=== PATIENT | female | born 1985 | race Caucasian/White ===

== ENCOUNTER 2016-10-18 05:39 | Inpatient (IN) | payer MEDICAID ==
[~2016-10-18] VITALS: Ht 165.1 cm; Wt 70.0 kg
[2016-10-18] VITALS (8 sets, daily range): BP systolic 109–140; BP diastolic 63–92; PULSE 65–104; RESP 15–23; TEMP 98.2–99; O2SAT 95–98
[2016-10-18] MEDS ORDERED: ACTIVATED CHARCOAL LIQUID 25 GM/120 ML BTL PO/NG ONE (05:45)
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
[2016-10-18 06:34] LABS: AUTOMATED NEUTROPHIL # 6.4 TH/MM3 (1.8-7.7); BASOPHIL % 0.5 % (0.0-2.0); EOSINOPHIL % 0.2 % (0.0-4.0); HEMATOCRIT 40.9 % (35.0-46.0); HEMO FLAGS DIFF FINAL; LYMPH % 27.2 % (9.0-44.0); LYMPHOCYTE # 2.6 TH/MM3 (1.0-4.8); MEAN CELL VOLUME 84.9 FL (80.0-100.0); MEAN CORPUSCULAR HEMOGLOBIN 28.9 PG (27.0-34.0); MONO % 5.7 % (0.0-8.0); NEUT % 66.4 % (16.0-70.0); PLATELET COUNT 250 TH/MM3 (150-450); RED BLOOD COUNT 4.82 MIL/MM3 (4.00-5.30); RED CELL DISTRIBUTION WIDTH 14.8 % (11.6-17.2); WHITE BLOOD COUNT 9.6 TH/MM3 (4.0-11.0)
[2016-10-18 06:55] LABS: ALT (GPT) 37 U/L (10-53); ANION GAP 9 MEQ/L (5-15); AST (GOT) 36 U/L (15-37); BICARBONATE 23.9 MEQ/L (21.0-32.0); BLOOD UREA NITROGEN 10 MG/DL (7-18); CHLORIDE 107 MEQ/L (98-107); GLOMERULAR FILTRATION RATE 114 ML/MIN (>89); POTASSIUM 4.1 MEQ/L (3.5-5.1); SODIUM (NA) 140 MEQ/L (136-145)
[2016-10-18 07:02] LABS: ALCOHOL 121 MG/DL (0-5)
[2016-10-18 07:04] LABS: ALKALINE PHOSPHATASE 65 U/L (45-117); TOTAL BILIRUBIN ADULT 0.2 MG/DL (0.2-1.0)
[2016-10-18 07:10] LABS: ACETAMINOPHEN 168.7 MCG/ML (10.0-30.0)
--- NOTE | 2016-10-18 07:28 | PD ---
Physical Exam Date Seen by Provider: Oct 18, 2016 Time Seen by Provider: 07:00 Narrative The patient was signed out to me by Dr. Spencer at change of shift. The patient is under a Loving act and reportedly took a half bottle of Tylenol. We were awaiting the Tylenol level. Please note the Tylenol level comes back at 167. Acetadote was ordered. Data Data Last Documented VS Vital Signs Date Time Temp Pulse Resp B/P Pulse Ox O2 Delivery O2 Flow Rate FiO2 10/18/16 06:30 18 10/18/16 05:42 98.7 94 119/72 97 Orders Complete Blood Count With Diff (10/18/16 05:45) Comprehensive Metabolic Panel (10/18/16 05:45) Thyroid Stimulating Hormone (10/18/16 05:45) Urinalysis - C+S If Indicated (10/18/16 05:45) Ed Urine Pregnancytest Poc (10/18/16 05:45) Electrocardiogram (10/18/16 05:45) Psych Screen (10/18/16 05:45) Drug Screen, Random Urine (10/18/16 05:45) Alcohol (Ethanol) (10/18/16 05:45) Salicylates (Aspirin) (10/18/16 05:45) Tylenol (Acetaminophen) (10/18/16 05:45) Charcoal Activated Liq (Actidose-Aqua Li (10/18/16 05:45) Call Poison Control (10/18/16 05:45) Acetylcysteine Inj (Acetadote Inj) (10/18/16 07:30) Admit Order (Ed Use Only) (10/18/16 07:46) Labs Laboratory Tests Test 10/18/16 06:00 White Blood Count 9.6 TH/MM3 Red Blood Count 4.82 MIL/MM3 Hemoglobin 13.9 GM/DL Hematocrit 40.9 % Mean Corpuscular Volume 84.9 FL Mean Corpuscular Hemoglobin 28.9 PG Mean Corpuscular Hemoglobin 34.0 % Concent Red Cell Distribution Width 14.8 % Platelet Count 250 TH/MM3 Mean Platelet Volume 10.0 FL Neutrophils (%) (Auto) 66.4 % Lymphocytes (%) (Auto) 27.2 % Monocytes (%) (Auto) 5.7 % Eosinophils (%) (Auto) 0.2 % Basophils (%) (Auto) 0.5 % Neutrophils # (Auto) 6.4 TH/MM3 Lymphocytes # (Auto) 2.6 TH/MM3 Monocytes # (Auto) 0.5 TH/MM3 Eosinophils # (Auto) 0.0 TH/MM3 Basophils # (Auto) 0.0 TH/MM3 CBC Comment DIFF FINAL Differential Comment Sodium Level 140 MEQ/L Potassium Level 4.1 MEQ/L Chloride Level 107 MEQ/L Carbon Dioxide Level 23.9 MEQ/L Anion Gap 9 MEQ/L Blood Urea Nitrogen 10 MG/DL Creatinine 0.62 MG/DL Estimat Glomerular Filtration 114 ML/MIN Rate Random Glucose 111 MG/DL Calcium Level 8.5 MG/DL Total Bilirubin 0.2 MG/DL Aspartate Amino Transf 36 U/L (AST/SGOT) Alanine Aminotransferase 37 U/L (ALT/SGPT) Alkaline Phosphatase 65 U/L Total Protein 7.4 GM/DL Albumin 3.6 GM/DL Thyroid Stimulating Hormone 0.792 uIU/ML 3rd Gen Salicylates Level LESS THAN 1.7 MG/DL Acetaminophen Level 168.7 MCG/ML Ethyl Alcohol Level 121 MG/DL MDM Medical Record Reviewed: Yes Supervised Visit with FACUNDO: No Critical Care Narrative 30-year-old female brought in under a Loving act after ingesting Tylenol. The patient has Tylenol level of 169. Acetadote was implemented. The patient was initially slotted for a medicine admission however she has been changed to intensive care. The patient was initially discussed with Dr. Amaro but is now gone to the unit. The case was discussed with Dr. Young who agreed for the admission. Diagnosis Primary Impression: Tylenol overdose Additional Impressions: Alcohol intoxication Loving act Admitting Information Admitting Physician Requests: Admit Anthony Rios MD Oct 18, 2016 07:28
[2016-10-18] MEDS ORDERED: ACETYLCYSTEINE INJ 10,500 MG in DEXTROSE 5% IN WATER INJ 200 ML IV ONE ×2 (07:30)
[2016-10-18] MEDS ORDERED: ONDANSETRON HCL 4 MG/2 ML VIAL IVP PRN ×2 (08:30→08:45)
[2016-10-18] MEDS ORDERED: ACETYLCYSTEINE INJ 3,500 MG in DEXTROSE 5% IN WATE 500 ML INJ 500 ML IV ONE ×6 (08:30→09:00)
[2016-10-18] MEDS ORDERED: ACETYLCYSTEINE INJ 7,000 MG in DEXTROSE 5% IN WATE 1000ML INJ 1,000 ML IV ONE ×6 (08:30→13:45)
[2016-10-18] MEDS ORDERED: MAGNESIUM HYDROXIDE SUSP 30 ML CUP PO PRN ×3 (08:30→08:45)
[2016-10-18] MEDS ORDERED: SODIUM CHLOR 0.9% 1000 ML INJ 1,000 ML IV SCH (08:31)
[2016-10-18] MEDS ORDERED: LORazepam 1 MG TAB PO PRN (08:45)
[2016-10-18] MEDS ORDERED: MISCELLANEOUS NURSING INFORMATION XX SCH (08:45)
[2016-10-18] MEDS ORDERED: LORazepam 2 MG/ML VIAL IV PUSH PRN ×4 (08:45)
[2016-10-18] MEDS ORDERED: SENNOSIDES 8.6 MG TAB PO PRN ×2 (08:45)
[2016-10-18] MEDS ORDERED: PROCHLORPERAZINE 25 MG SUPP RECTAL PRN (08:45)
[2016-10-18] MEDS ORDERED: NALOXONE HCL 0.4 MG/ML AMP IV PRN (08:45)
[2016-10-18] MEDS ORDERED: CHLORHEXIDINE GLUCONATE 2 % 1 PACK (2 CLOTHS) TOP PRN (08:45)
[2016-10-18] MEDS ORDERED: FLUMAZENIL 0.5 MG/5 ML VIAL IV PUSH PRN (08:45)
[2016-10-18] MEDS ORDERED: RESP: ALBUTEROL 2.5 MG/IPRATROPIUM 0.5 MG NEB (PRN) INH (08:45)
[2016-10-18] MEDS ORDERED: LORazepam 2 MG TAB PO PRN (08:45)
[2016-10-18] MEDS ORDERED: BISACODYL 10 MG SUPP RECTAL PRN ×2 (08:45)
[2016-10-18] MEDS ORDERED: SODIUM CHLORIDE 0.9% FLUSH 10 ML FLUSH IV FLUSH PRN (08:45)
[2016-10-18] MEDS ORDERED: LACTULOSE SYRUP 20 GM/30 ML CUP PO PRN ×2 (08:45)
[2016-10-18] MEDS ORDERED: MORPHINE SULFATE 4 MG/ML INJ IV PRN ×3 (08:45)
[2016-10-18] MEDS ORDERED: DOCUSATE SODIUM 50 MG/SENNA 8.6 MG TAB PO SCH (09:00)
[2016-10-18 09:22] LABS: ALT (GPT) 37 U/L (10-53); AST (GOT) 36 U/L (15-37)
[2016-10-18 09:24] LABS: ALKALINE PHOSPHATASE 65 U/L (45-117); TOTAL BILIRUBIN ADULT LESS THAN 0.1 MG/DL (0.2-1.0)
[2016-10-18] MEDS ORDERED: MULTIVITAMIN TAB PO ONE (10:00)
[2016-10-18] MEDS ORDERED: FOLIC ACID 1 MG TAB PO ONE (10:00)
[2016-10-18] MEDS ORDERED: THIAMINE HCL 100 MG TAB PO ONE (10:00)
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
[2016-10-18] MEDS: SODIUM CHLORIDE 0.9% FLUSH 10 ML FLUSH IV FLUSH SCH ×2 (11:14→21:00)
[2016-10-18] MEDS: MULTIVITAMIN INJ 10 ML, THIAMINE INJ 100 MG, FOLIC ACID INJ 1 MG in DEXT 5%-NACL 0.9% 5... IV SCH ×2 (12:15→13:20)
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
[2016-10-18] MEDS: DOCUSATE SODIUM 50 MG/SENNA 8.6 MG TAB PO SCH ×2 (13:19→21:00)
[2016-10-18] MEDS: ENOXAPARIN SODIUM 40 MG/0.4 ML SYRINGE SQ SCH (13:21)
[2016-10-18] MEDS: PANTOPRAZOLE SODIUM 40 MG VIAL IV SCH (13:21)
[2016-10-18] MEDS: SODIUM CHLOR 0.9% 1000 ML INJ 1,000 ML IV SCH ×3 (14:06→23:20)
--- NOTE | 2016-10-18 14:59 | EKG ---
Date Performed: 10/18/2016 Time Performed: 05:55:40 PTAGE: 30 years EKG: Sinus rhythm POSSIBLE LEFT ATRIAL ENLARGEMENT BORDERLINE ECG NO PREVIOUS TRACING DOCTOR: Gato Mantilla Interpretating Date/Time 10/18/2016 14:57:45
[2016-10-18 22:26] LABS: PROTHROMBIN TIME - PATIENT 11.5 SEC (9.8-11.6)
[2016-10-18 23:20] LABS: ACETAMINOPHEN LESS THAN 2.0 MCG/ML (10.0-30.0); ALKALINE PHOSPHATASE 51 U/L (45-117); ALT (GPT) 33 U/L (10-53); ANION GAP 6 MEQ/L (5-15); AST (GOT) 21 U/L (15-37); BICARBONATE 25.4 MEQ/L (21.0-32.0); BLOOD UREA NITROGEN 6 MG/DL (7-18); CHLORIDE 107 MEQ/L (98-107); GLOMERULAR FILTRATION RATE 133 ML/MIN (>89); POTASSIUM 3.1 MEQ/L (3.5-5.1); SODIUM (NA) 138 MEQ/L (136-145); TOTAL BILIRUBIN ADULT 0.3 MG/DL (0.2-1.0)
[2016-10-19] VITALS (10 sets, daily range): BP systolic 123–151; BP diastolic 67–92; PULSE 60–85; RESP 16–22; TEMP 98.6–99.5; O2SAT 94–99
[2016-10-19] MEDS ORDERED: CHLORHEXIDINE GLUCONATE 2 % 1 PACK (2 CLOTHS) TOP SCH (04:00)
[2016-10-19 04:17] LABS: AUTOMATED NEUTROPHIL # 5.9 TH/MM3 (1.8-7.7); BASOPHIL % 0.4 % (0.0-2.0); EOSINOPHIL # 0.1 TH/MM3 (0-0.4); EOSINOPHIL % 0.9 % (0.0-4.0); HEMATOCRIT 37.4 % (35.0-46.0); HEMO FLAGS DIFF FINAL; LYMPH % 30.7 % (9.0-44.0); MEAN CELL VOLUME 85.2 FL (80.0-100.0); MEAN CORPUSCULAR HEMOGLOBIN 28.7 PG (27.0-34.0); MEAN CORPUSCULAR HGB CONC 33.7 % (32.0-36.0); MONO % 7.5 % (0.0-8.0); NEUT % 60.5 % (16.0-70.0); PLATELET COUNT 204 TH/MM3 (150-450); RED BLOOD COUNT 4.38 MIL/MM3 (4.00-5.30); RED CELL DISTRIBUTION WIDTH 14.4 % (11.6-17.2); WHITE BLOOD COUNT 9.8 TH/MM3 (4.0-11.0)
[2016-10-19 04:25] LABS: PROTHROMBIN TIME - PATIENT 11.5 SEC (9.8-11.6)
[2016-10-19 04:40] LABS: ANION GAP 9 MEQ/L (5-15); AST (GOT) 15 U/L (15-37); BLOOD UREA NITROGEN 6 MG/DL (7-18); CHLORIDE 106 MEQ/L (98-107); GLOMERULAR FILTRATION RATE 133 ML/MIN (>89); POTASSIUM 3.2 MEQ/L (3.5-5.1); SODIUM (NA) 139 MEQ/L (136-145)
[2016-10-19 04:49] LABS: ACETAMINOPHEN LESS THAN 2.0 MCG/ML (10.0-30.0); ALKALINE PHOSPHATASE 52 U/L (45-117); ALT (GPT) 32 U/L (10-53); FREE T4 0.95 NG/DL (0.76-1.46); TOTAL BILIRUBIN ADULT 0.2 MG/DL (0.2-1.0)
[2016-10-19] MEDS: SODIUM CHLOR 0.9% 1000 ML INJ 1,000 ML IV SCH (06:00)
[2016-10-19] MEDS: DOCUSATE SODIUM 50 MG/SENNA 8.6 MG TAB PO SCH (08:13)
[2016-10-19] MEDS: SODIUM CHLORIDE 0.9% FLUSH 10 ML FLUSH IV FLUSH SCH (08:14)
[2016-10-19] MEDS: PANTOPRAZOLE SODIUM 40 MG VIAL IV SCH (08:14)
[2016-10-19] MEDS ORDERED: POTASSIUM PHOSPHATE MONOBASIC 500 MG TAB PO ONE (08:15)
[2016-10-19] MEDS: MULTIVITAMIN INJ 10 ML, THIAMINE INJ 100 MG, FOLIC ACID INJ 1 MG in DEXT 5%-NACL 0.9% 5... IV SCH (08:24)
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
[2016-10-19] MEDS ORDERED: NS + KCL 20 MEQ INJ 1,000 ML IV SCH (09:00)
[2016-10-19] MEDS ORDERED: FOLIC ACID 1 MG TAB PO SCH (09:00)
[2016-10-19] MEDS ORDERED: THIAMINE HCL 100 MG TAB PO SCH (09:00)
[2016-10-19] MEDS ORDERED: MULTIVITAMIN TAB PO SCH (09:00)
[2016-10-19] MEDS: ENOXAPARIN SODIUM 40 MG/0.4 ML SYRINGE SQ SCH (10:34)
--- NOTE | 2016-10-19 15:51 | HHI.DCPOC ---
Discharge Care Plan Diagnosis: (1) Tylenol overdose (2) Alcohol intoxication (3) Suicide attempt (4) Major depressive disorder, single episode Goals to Promote Your Health * To prevent worsening of your condition and complications * To maintain your health at the optimal level Directions to Meet Your Goals Take your medications as prescribed Follow your dietary instruction Follow activity as directed Keep your appointments as scheduled Take your immunizations and boosters as scheduled If your symptoms worsen call your PCP, if no PCP go to Urgent Care Center or Emergency Room Smoking is Dangerous to Your Health. Avoid second hand smoke Call the 24-hour hour crisis hotline for domestic abuse at Ramone Esquivel MD Oct 19, 2016 15:51
[2016-10-19] MEDS ORDERED: FOLI1TAB6 PO (15:52)
[2016-10-19] MEDS ORDERED: GNP100TA3 PO (15:52)
[2016-10-19 16:00] LABS: HEMOGLOBIN A1a 1.2 %; HEMOGLOBIN A1b 1.4 %; HEMOGLOBIN Ao 86.3 %; HEMOGLOBIN LA1C 1.7 %; HEMOGLOBIN P3 3.5 %
== END 2016-10-19 17:49 | DRG 918 ==
LOC: NEPC 05:39 → NEDA 07:48 → HIME 15:00
PROVIDERS: ADMIT Family Medicine; ATTEND Family Medicine
DX: T39.1X2A Poisoning by 4-Aminophenol derivatives, intentional self-harm, initial encounter (principal); F32.9 Major depressive disorder, single episode, unspecified; F10.120 Alcohol abuse with intoxication, uncomplicated; Y90.6 Blood alcohol level of 120-199 mg/100 ml; E87.6 Hypokalemia
CPT/HCPCS: 71010; 76937; 80053; 80076; 80307; 83036; 83690; 83735; 84100; 84439; 84443; 84703; 85025; 85610; 87641; 93005; C9113; J0132; J1650; J2405; J3411; J3480; J7030; J7042; J7060; J7070

== ENCOUNTER 2016-10-19 17:52 | Inpatient (IN) | payer MEDICAID ==
[~2016-10-19 17:52] MED LIST: FOLI1TAB6 PO; GNP100TA3 PO
[2016-10-19 18:00] VITALS: BP 125/74; PULSE 70; RESP 16; TEMP 98.9; O2SAT 97
[2016-10-19] MEDS: NS + KCL 20 MEQ INJ 1,000 ML IV SCH (18:15)
[2016-10-20] MEDS: NS + KCL 20 MEQ INJ 1,000 ML IV SCH (05:02)
[2016-10-20 06:08] VITALS: BP 129/61; PULSE 67; RESP 15; TEMP 98.3; O2SAT 100
[2016-10-20] MEDS ORDERED: LORazepam 2 MG TAB PO PRN (09:45)
[2016-10-20] MEDS: THIAMINE HCL 100 MG TAB PO SCH (09:45)
[2016-10-20] MEDS ORDERED: LORazepam 2 MG/ML VIAL IV PUSH PRN ×4 (09:45)
[2016-10-20] MEDS ORDERED: SODIUM CHLORIDE 0.9% FLUSH 10 ML FLUSH IV FLUSH PRN (09:45)
[2016-10-20] MEDS ORDERED: LORazepam 1 MG TAB PO PRN (09:45)
[2016-10-20] MEDS ORDERED: FLUMAZENIL 0.5 MG/5 ML VIAL IV PUSH PRN (09:45)
[2016-10-20] MEDS: FOLIC ACID 1 MG TAB PO SCH (09:45)
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
[2016-10-20] MEDS: SODIUM CHLORIDE 0.9% FLUSH 10 ML FLUSH IV FLUSH SCH ×2 (10:00→21:47)
--- NOTE | 2016-10-20 11:00 | PD.CONS ---
HPI Service [facility] Hospitalists Consult Requested By Psychiatric team Reason for Consult Medical management patient status post acetaminophen overdose with electrolyte abnormalities Primary Care Physician Unknown Diagnoses: History of Present Illness Written by Rita Keenan, acting as scribe for Dr. Harrison on 10/20/16 at 10:55. This is a 30-year-old female patient who denies prior past medical history. Patient was admitted to [facility] 10/18/2016 secondary to acetaminophen overdose. Patient has received activated charcoal in the emergency department, is status post acetylcysteine protocol, acetaminophen level less than 2. Patient is currently inpatient psychiatric center. We have been consulted for assistance with medical management. Patient resting in bed alert and oriented 3 appears to be in no acute distress. Patient denies shortness of breath chest pain nausea vomiting diarrhea constipation fevers or chills. Review of Systems Except as stated in HPI: all other systems reviewed are Neg Past Family Social History Allergies: Coded Allergies: No Known Allergies (Unverified , 10/18/16) Past Medical History Denies prior medical history Past Surgical History Appendectomy at age 11 Reported Medications Patient does not take medications on daily basis Active Ordered Medications Current Medications Medications (Trade) Dose Ordered Sig/Paulino Route Start Time Stop Time Status Last Admin (NS + KCl 20 Meq Inj) 1,000 ml @ 100 mls/hr Q10H IV 10/19/16 18:15 10/20/16 05:02 (Folate) 1 mg DAILY PO 10/20/16 09:45 10/20/16 09:45 (Vitamin B1) 100 mg DAILY PO 10/20/16 09:45 10/20/16 09:45 (NS Flush) 2 ml UNSCH PRN IV FLUSH 10/20/16 09:45 (NS Flush) 2 ml BID IV FLUSH 10/20/16 10:00 (Romazicon Inj) 0.2 mg Q1M PRN IV PUSH 10/20/16 09:45 (Ativan) 1 mg Q4H PRN PO 10/20/16 09:45 (Ativan Inj) 1 mg Q4H PRN IV PUSH 10/20/16 09:45 (Ativan) 2 mg Q2H PRN PO 10/20/16 09:45 (Ativan Inj) 2 mg Q2H PRN IV PUSH 10/20/16 09:45 (Ativan Inj) 2 mg Q1H PRN IV PUSH 10/20/16 09:45 (Ativan Inj) 2 mg Q15M PRN IV PUSH 10/20/16 09:45 (Remeron) 15 mg HS PO 10/20/16 21:00 Family History Denies feeling medical history of anxiety, suicide attempts, diabetes mellitus or cancer Social History EtOH use occasional not on a daily basis Denies tobacco use or illicit drug use Physical Exam Vital Signs Vital Signs Date Time Temp Pulse Resp B/P Pulse Ox O2 Delivery O2 Flow Rate FiO2 10/20/16 06:08 98.3 67 15 129/61 100 10/19/16 18:00 98.9 70 16 125/74 97 Physical Exam GENERAL: This is a well-nourished, well-developed patient, in no apparent distress. SKIN: No rashes, ecchymoses or lesions. Cool and dry. HEAD: Atraumatic. Normocephalic. No temporal or scalp tenderness. EYES: Extraocular motions intact. No scleral icterus. No injection or drainage. ENT: Nose without bleeding, purulent drainage or septal hematoma. Throat without erythema, tonsillar hypertrophy or exudate. Uvula midline. Airway patent. NECK: Trachea midline. No JVD or lymphadenopathy. Supple, nontender, no meningeal signs. CARDIOVASCULAR: Regular rate and rhythm without murmurs, gallops, or rubs. RESPIRATORY: Clear to auscultation. Breath sounds equal bilaterally. No wheezes , rales, or rhonchi. GASTROINTESTINAL: Abdomen soft, non-tender, nondistended. No hepato-splenomegaly , or palpable masses. No guarding. MUSCULOSKELETAL: Extremities without clubbing, cyanosis, or edema. No joint tenderness, effusion, or edema noted. No calf tenderness. Negative Homans sign bilaterally. NEUROLOGICAL: Awake and alert. No focal deficits patient. Motor and sensory grossly within normal limits. Five out of 5 muscle strength in all muscle groups. Normal speech. Assessment and Plan Assessment and Plan This is a 30-year-old female patient who denies prior past medical history. Patient was admitted to [facility] 10/18/2016 secondary to acetaminophen overdose. Patient has received activated charcoal in the emergency department, is status post acetylcysteine protocol, acetaminophen level less than 2. Patient is currently inpatient psychiatric center. We have been consulted for assistance with medical management. Patient resting in bed alert and oriented 3 appears to be in no acute distress. Suicide attempt management per psychiatric team Acetaminophen overdose Electrolyte imbalances including hypokalemia and hypophosphatemia and hypocalcemia Patient has received activated charcoal in the emergency department, is status post acetylcysteine protocol, significant medical less than 2 CMP reviewed liver functions within normal limits Electrolytes replaced Recheck BMP pending DVT prophylaxis patient is ambulatory and low risk This note was transcribed by tho Keenan . I, Dr. Tyrese Busby personally performed the history, physical exam, and medical decision making; and confirmed the accuracy of the information in the transcribed note. Authenticated by Dr. Tyrese Busby on 10/20/16 at 11:05. Rita Keenan Oct 20, 2016 11:00 Tyrese Hernandez MD Oct 20, 2016 14:35 Rita Keenan Oct 20, 2016 11:00 Tyrese Hernandez MD Oct 20, 2016 14:35
[2016-10-20 17:16] LABS: BICARBONATE 27.8 MEQ/L (21.0-32.0); POTASSIUM 3.9 MEQ/L (3.5-5.1)
[2016-10-20 17:38] VITALS: BP 141/78; PULSE 70; RESP 18; TEMP 98.6; O2SAT 96
[2016-10-20 20:13] VITALS: BP 141/78; PULSE 70; RESP 18; TEMP 98.6; O2SAT 96
[2016-10-20] MEDS: MIRTAZAPINE 15 MG TAB PO SCH (21:43)
[2016-10-21 06:21] VITALS: BP 109/58; PULSE 64; RESP 18; TEMP 98.2; O2SAT 99
--- NOTE | 2016-10-21 09:51 | HHI.PYPN ---
Subjective Remarks Patient seen for follow-up, chart reviewed. After discussion with nursing staff patient noted to minimize symptoms of recent admission, CIWA has been 0, and patient noted to be doing well. Patient found lying in hospital bed able to interact in interview today. Patient stated that she did feeling "good", reports having slept very well last night and tolerating recent start of Remeron 50 mg at bedtime. Patient reports eating and drinking well no issues with urination a bowel movement. Patient states that she's been feeling "happy today" as she had been visited by her parents yesterday which went well. Patient states that she last with her last evening and feels supported by him. Patient this time denies SI, HI, AVH or delusions. Review of Systems Except as stated in HPI: all other systems reviewed are Neg Objective Alert: Yes [place]: Person, Place, Date, Situation Mood: Calm Affect: Appropriate Memory Intact: Comment Hallucinations: Other (intact denies) Delusions: No Delusion Type: Other (denies) Suicidal: Ideation (denies) Homicidal: Ideation (denies) Insight/Judgment Limited insight, fair impulse control and judgment Labs Labs reviewed. Test 10/20/16 16:25 Sodium Level 141 MEQ/L Potassium Level 3.9 MEQ/L Chloride Level 106 MEQ/L Carbon Dioxide Level 27.8 MEQ/L Anion Gap 7 MEQ/L Blood Urea Nitrogen 7 MG/DL Creatinine 0.57 MG/DL Estimat Glomerular Filtration 125 ML/MIN Rate Random Glucose 75 MG/DL Calcium Level 9.0 MG/DL Vitals/IOs Vital Signs Date Time Temp Pulse Resp B/P Pulse Ox O2 Delivery O2 Flow Rate FiO2 10/21/16 06:21 98.2 64 18 109/58 99 Intake and Output 10/20/16 10/20/16 10/21/16 08:00 16:00 00:00 Intake Total 480 ml 1200 ml 1320 ml Balance 480 ml 1200 ml 1320 ml Assessment & Plan Problem List: (1) Major depressive disorder, single episode ICD Code: F32.9 Assessment & Plan Patient at this time tolerating current treatment well and denies any adverse drug reactions. Supportive psychotherapy provided. Continue current treatment. Recommendations as per primary medical team. Discharge planning in progress Justification for Cont. Inpt. Patient at risk for further decompensation if it lower level of care Discharge Planning In progress Problem Qualifiers (1) Major depressive disorder, single episode: Austin Keller MD Oct 21, 2016 09:51
[2016-10-21] MEDS: FOLIC ACID 1 MG TAB PO SCH (10:10)
[2016-10-21] MEDS: THIAMINE HCL 100 MG TAB PO SCH (10:10)
[2016-10-21] MEDS: SODIUM CHLORIDE 0.9% FLUSH 10 ML FLUSH IV FLUSH SCH ×2 (10:12→21:00)
--- NOTE | 2016-10-21 14:31 | HHI.PR ---
Subjective Remarks Patient denies cp/sob denies nausea, vomiting or abdominal pain denies fevers/chills Objective Vitals Vital Signs Date Time Temp Pulse Resp B/P Pulse Ox O2 Delivery O2 Flow Rate FiO2 10/21/16 06:21 98.2 64 18 109/58 99 10/20/16 20:13 98.6 70 18 141/78 96 10/20/16 17:38 98.6 70 18 141/78 96 I/O 10/20/16 10/20/16 10/20/16 10/21/16 10/21/16 10/21/16 06:59 14:59 22:59 06:59 14:59 22:59 Intake Total 480 ml 1200 ml 1320 ml 240 ml 480 ml Balance 480 ml 1200 ml 1320 ml 240 ml 480 ml Intake Oral 480 ml 1200 ml 1320 ml 240 ml 480 ml # Voids 2 4 3 Result Diagram: 10/20/16 1625 Objective Remarks AAOX3, NAD Clear lungs BL S1S2 RRR, no MRG Abdomen, soft, NT, ND Medications and IVs Current Medications Medications (Trade) Dose Ordered Sig/Paulino Route Start Time Stop Time Status Last Admin (Folate) 1 mg DAILY PO 10/20/16 09:45 10/21/16 10:10 (Vitamin B1) 100 mg DAILY PO 10/20/16 09:45 10/21/16 10:10 (NS Flush) 2 ml UNSCH PRN IV FLUSH 10/20/16 09:45 (NS Flush) 2 ml BID IV FLUSH 10/20/16 10:00 10/21/16 10:12 (Romazicon Inj) 0.2 mg Q1M PRN IV PUSH 10/20/16 09:45 (Ativan) 1 mg Q4H PRN PO 10/20/16 09:45 (Ativan Inj) 1 mg Q4H PRN IV PUSH 10/20/16 09:45 (Ativan) 2 mg Q2H PRN PO 10/20/16 09:45 (Ativan Inj) 2 mg Q2H PRN IV PUSH 10/20/16 09:45 (Ativan Inj) 2 mg Q1H PRN IV PUSH 10/20/16 09:45 (Ativan Inj) 2 mg Q15M PRN IV PUSH 10/20/16 09:45 (Remeron) 15 mg HS PO 10/20/16 21:00 10/20/16 21:43 Urinary Catheter: No Vascular Central Line Catheter: No A/P Problem List: (1) Tylenol overdose ICD Code: T39.1X1A Status: Resolved (2) Alcohol intoxication ICD Code: F10.929 Status: Resolved (3) Suicide attempt ICD Code: T14.91 Status: Acute (4) Major depressive disorder, single episode ICD Code: F32.9 Status: Acute Assessment and Plan This is a 30-year-old female patient who denies prior past medical history. Patient was admitted to [facility] 10/18/2016 secondary to acetaminophen overdose. Patient has received activated charcoal in the emergency department, is status post acetylcysteine protocol, acetaminophen level less than 2. Patient is currently inpatient psychiatric center. We have been consulted for assistance with medical management. Patient resting in bed alert and oriented 3 appears to be in no acute distress. Suicide attempt management per psychiatric team Acetaminophen overdose Electrolyte imbalances including hypokalemia and hypophosphatemia and hypocalcemia Patient has received activated charcoal in the emergency department, is status post acetylcysteine protocol, significant medical less than 2 CMP reviewed liver functions within normal limits Electrolytes replaced Recheck BMP within normal range DVT prophylaxis patient is ambulatory and low risk Discharge Planning Patient is medically clear for DC. Problem Qualifiers (1) Major depressive disorder, single episode: Tyrese Hernandez MD Oct 21, 2016 14:31
[2016-10-21 18:36] VITALS: BP 139/70; PULSE 83; RESP 16; TEMP 98.4; O2SAT 97
[2016-10-21] MEDS: MIRTAZAPINE 15 MG TAB PO SCH (20:51)
[2016-10-22 06:13] VITALS: BP 117/71; PULSE 65; RESP 17; TEMP 97.6; O2SAT 100
[2016-10-22] MEDS: SODIUM CHLORIDE 0.9% FLUSH 10 ML FLUSH IV FLUSH SCH ×2 (09:00→20:22)
[2016-10-22] MEDS: FOLIC ACID 1 MG TAB PO SCH (09:00)
[2016-10-22] MEDS: THIAMINE HCL 100 MG TAB PO SCH (09:00)
[2016-10-22 17:00] VITALS: BP 114/79; PULSE 92; RESP 18; TEMP 97.8; O2SAT 97
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
[2016-10-22] MEDS: MIRTAZAPINE 15 MG TAB PO SCH (20:21)
[2016-10-23 05:40] VITALS: BP 109/67; PULSE 81; RESP 20; TEMP 98.2; O2SAT 99
[2016-10-23] MEDS: THIAMINE HCL 100 MG TAB PO SCH (08:23)
[2016-10-23] MEDS: FOLIC ACID 1 MG TAB PO SCH (08:23)
[2016-10-23] MEDS: SODIUM CHLORIDE 0.9% FLUSH 10 ML FLUSH IV FLUSH SCH (08:46)
[2016-10-23] MEDS ORDERED: MIRTA15 PO (08:56)
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
== END 2016-10-23 09:15 | disposition home or self-care (01) | DRG 885 ==
LOC: H4EA 17:52 → H270 10-21 15:50
PROVIDERS: ADMIT Psychiatry & Neurology Psychiatry; ATTEND Psychiatry & Neurology Psychiatry
DX: F32.2 Major depressive disorder, single episode, severe without psychotic features (principal); E83.39 Other disorders of phosphorus metabolism; E83.51 Hypocalcemia; E87.6 Hypokalemia; F10.10 Alcohol abuse, uncomplicated; Z91.5 Personal history of self-harm
CPT/HCPCS: 80048; J3480